=== PATIENT | male | born 1985 | race Two or more races ===

== ENCOUNTER 2024-03-22 15:26 | Emergency (ER) | payer OTHER ==
[~2024-03-22] VITALS: Ht 172.7 cm; Wt 92.5 kg
[2024-03-22] MEDS ORDERED: OXYC-128 PO (16:09)
[2024-03-22] MEDS ORDERED: TDAP [DIPH/PERTUSSIS/TET] 0.5 ML VIAL IM ONE (16:13)
[2024-03-22] MEDS ORDERED: oxyCODONE/APAP (5/325 MG) 1 UDTAB TABLET ONE (16:13)
[2024-03-22] MEDS: TDAP [DIPH/PERTUSSIS/TET] 0.5 ML VIAL IM ONE (16:22)
[2024-03-22] MEDS: oxyCODONE/APAP (5/325 MG) 1 UDTAB TABLET PO ONE (16:23)
[2024-03-22 16:37] VITALS: BP 147/85; TEMP 97.3; O2SAT 99
== END 2024-03-22 16:39 | disposition home or self-care (01) ==
LOC: ER 15:50
DX: T25.221A Burn of second degree of right foot, initial encounter (principal); X11.8XXA Contact with other hot tap-water, initial encounter; Y93.89 Activity, other specified; Y92.89 Other specified places as the place of occurrence of the external cause; Y99.8 Other external cause status
CPT/HCPCS: 90715

== ENCOUNTER 2024-04-03 11:47 | Emergency (ER) | payer OTHER ==
[~2024-04-03] VITALS: Ht 172.7 cm; Wt 90.7 kg
[~2024-04-03 11:47] MED LIST: OXYC-128 PO
[2024-04-03 12:05] VITALS: BP 142/92; TEMP 97.9; O2SAT 99
== END 2024-04-03 13:54 | disposition home or self-care (01) ==
LOC: ER 11:57
DX: T25.221D Burn of second degree of right foot, subsequent encounter (principal); X12.XXXD Contact with other hot fluids, subsequent encounter; Z09 Encounter for follow-up examination after completed treatment for conditions other than malignant neoplasm